=== PATIENT | male | born 1960 | race Caucasian/White ===

== ENCOUNTER 2024-08-30 09:22 | Outpatient (AMB) | payer OTHER, SELFPAY ==
--- OUTSIDE RECORDS SUMMARY | 2024-08-30 09:25 | XMS_ITS | Continuity of Care Document ---
Author Organization [facility] Address [address] [place] [address]- Care Team Providers Care Basket Patcher Name Role Phone Alirio MORENO, Day Rosa Primary Care Physici an Encounter [facility] Date(s): 07/17/24 - 08/16/24 [facility] [address] [place] [address]- Attending Physician: Admtr Ar8 Admitting Physician: Admtr, Ar8 Referring Physician: Admtr, Ar8 Encounter Type: Triage Allergies, Adverse Reactions, Alerts No Known Allergies Immunizations Given and Recorded Vaccine Date Status Refusal Reason pneumococcal 20-valent conjugate vaccine 05/18/24 Recorded SARS-CoV-2(COVID-19)mRNA-LNP vac([id number]) 06/16/23 Recorded influenza virus vaccine, inactivated 06/10/23 Baldo rded influenza virus vaccine, inactivated 06/04/22 Baldo rded influenza virus vaccine, inactivated 06/11/21 Baldo rded influenza virus vaccine, inactivated 05/29/20 Baldo rded influenza virus vaccine, inactivated 06/15/19 Baldo rded influenza virus vaccine, inactivated 1 06/14/18 Re corded influenza virus vaccine, inactivated 06/14/17 Baldo rded influenza virus vaccine, inactivated 2 06/13/16 Re corded influenza virus vaccine, inactivated 07/11/11 Give n [id number] bivalent booster vax 06/04/22 Recorded SARS-CoV-2 (COVID-19) mRNA-1273 vaccine 09/12/21 R ecorded SARS-CoV-2 (COVID-19) mRNA-1273 vaccine 01/14/21 R ecorded SARS-CoV-2 (COVID-19) mRNA-1273 vaccine 12/17/20 R ecorded tetanus/diphtheria/pertussis, acel(Tdap) 3 05/19/20 Given tetanus-diphtheria toxoids (Td) 10/22/09 Given tetanus-diphtheria toxoids (Td) 4 09/18/99 Given 1Result Comment: [06/18/2018] [facility] 2Result Comment: [06/15/2016] [facility] 3Result Comment: [facility] [id number] 4Admin Note: EXACT DATE UNKNOWN Medications atenolol 100 mg oral tablet 1 tablet, By Mouth, Daily, # 90 tablet, 1 Refills, Maintenance, 02/13/24 10:23:00 AM EDT, [facility]/pharmacy #1230, 160, cm, 02/13/24 9:12:00 EDT, Height Start Date: 02/13/24 Status: Ordered Quantity: 90.0 Unit: tablet Repeat number: 2 Indication: Essential (primary) hypertension Azithromycin 5 Day Dose Pack 250 mg oral tablet 1 pack/packet, By Mouth, Once, # 6 tablet, 0 Refills, Soft Stop, 07/25/24 6:41:00 PM EST, Tablet, [facility]/pharmacy #1230, Partial fill upon patient request if the prescription is for a schedule II opioid drug., 160, cm, 07/17/24 15:17:00 EDT, Height, 113.9, kg, 05/03/24 8:02:00 EDT, Dry Weight Start Date: 07/25/24 Status: Ordered Quantity: 6.0 Unit: tablet Repeat number: 1 Indication: Chronic obstructive pulmonary disease with (acute) exacerbation Caltrate 600 Plus 0 Refills, Maintenance, 03/11/14 3:39:12 PM EDT Start Date: 03/11/14 Status: Ordered Repeat number: 1 Claritin 10 mg oral tablet 1 tablet = 10 mg, By Mouth, Daily, 0 Refills, Maintenance, 04/05/12 4:27:24 PM EDT Start Date: 04/05/12 Status: Ordered Repeat number: 1 Flonase = 50 mcg, Daily, 0 Refills, Maintenance, 02/13/24 8:10:00 AM EDT, Partial fill upon patient request if the prescription is for a schedule II opioid drug. Start Date: 02/13/24 Status: Ordered Repeat number: 1 hydrochlorothiazide-losartan 12.5 mg-100 mg oral tablet 1 tablet, By Mouth, Daily, # 90 tablet, 1 Refills, Maintenance, 05/30/24 2:52:00 PM EDT, Tablet, [facility]/pharmacy #1230, Partial fill upon patient request if the prescription is for a schedule II opioid drug., 1 tablet By Mouth Daily,x90 days, 160, cm, 05/03/24 8:19:00 EDT, Height, 113.9, kg, 05/03/24 8:02:00 EDT, Dry Weight Start Date: 05/30/24 Stop Date: 11/26/24 Status: Ordered Quantity: 90.0 Unit: tablet Repeat number: 2 Indication: Essential (primary) hypertension Natural Fiber Therapy See Instructions, 0 Refills, Maintenance, 01/16/15 2:48:40 PM EDT Start Date: 01/16/15 Status: Ordered Repeat number: 1 nystatin topical 630050 u/gm cream 1 application, Topically, 2 times a day, Apply to affected area., # 30 Gm, 1 Refills, Maintenance, 05/19/20 8:25:00 AM EDT, Cream, [id number], 1 application Topically 2 times a day,a45kgkg,Instr:Apply to affected area., 160, cm, 05/19/20 8:08:00 EDT, Height Start Date: 05/19/20 Stop Date: 06/16/20 Status: Ordered Quantity: 30.0 Unit: g Repeat number: 2 Ventolin HFA 108 mcg/inh inhalation aerosol with adapter 2 puffs, Inhalation, 4 times a day, PRN Wheezing/Shortness of Breath, # 1 each, 1 Refills, Maintenance, 07/22/22 8:01:00 PM EDT, Aerosol, [facility]/pharmacy #1230, Partial fill upon patient request if the prescription is for a schedule II opioid drug., 160, cm, 12/24/21 12:48:00 EDT, Height Start Date: 07/22/22 Status: Ordered Quantity: 1.0 Unit: each Repeat number: 2 vit d vit d, Refills 0, Maintenance, 04/05/12 4:27:28 PM EDT Start Date: 04/05/12 Status: Ordered Repeat number: 1 Vitamin C By Mouth, Daily, 0 Refills, Maintenance, 11/13/19 8:38:00 AM EST Start Date: 11/13/19 Status: Ordered Repeat number: 1 Problem List Condition Confirmation Course Effective Dates Status Health St [facility] Informant ALLERGIC RHINITIS Confirmed Active Avulsion of finger Confirmed 12/14/12 Active Obesity (BMI 30-39.9) Confirmed Active Candidal skin infection Confirmed Active COPD, Gold cat. 1 Confirmed Active Exertional shortness of breath Confirmed Active Eczema Confirmed Active GERD (MILD) Confirmed Active Hypertension Confirmed Active Irritable bowel syndrome Confirmed Active Hernia, inguinal, left Confirmed Active Elevated LFTs Confirmed Active Obesity Confirmed Active Severe obesity Confirmed Active Weight gain Confirmed Active Social History Social History Type Response Smoking Status Current some day smo ker; Type: Cigars entered on: 06/13/16 Sex Sex Representation Male (finding) Laboratory * Event Display: Laboratory Result Scanned Authored Date: * Event Display: Non BH Lab Results Authored Date: Patient Care team information Care Team Personnel Name: Alirio MORENO, Day Rosa Position: [facility] PCO Associate Professional Member Role: PCP Address: [address] [place] [address] Practice [facility] [place] [address]- Telecom: Care Team Related Persons Name: ETHAN PECK Insurance Providers Guarantor name: JYOTI [facility] Information #: 1 Payer: [facility] Member Number: NA Policy Number: NA Group Number: NA
--- OUTSIDE RECORDS SUMMARY | 2024-08-30 09:25 | XMS_ITS | Continuity of Care Document ---
Author Organization [facility] Address [address] [place] [address]- Care Team Providers Care Pot Fluxer Name Role Phone Alirio MORENO, Day Rosa Primary Care Physici an Encounter [facility] Date(s): 07/16/24 - 08/15/24 [facility] [address] [place] [address]- Encounter Type: Triage Allergies, Adverse Reactions, Alerts No Known Allergies Immunizations Given and Recorded Vaccine Date Status Refusal Reason pneumococcal 20-valent conjugate vaccine 05/18/24 Recorded SARS-CoV-2(COVID-19)mRNA-LNP vac([id number]) 06/16/23 Recorded influenza virus vaccine, inactivated 06/10/23 [...] influenza virus vaccine, inactivated 07/11/11 Give n [id number] bivalent booster vax 06/04/22 Recorded SARS-CoV-2 (COVID-19) mRNA-1273 vaccine 09/12/21 R ecorded SARS-CoV-2 (COVID-19) mRNA-1273 vaccine 01/14/21 R ecorded SARS-CoV-2 (COVID-19 mRNA-2257 vaccine 12/17/20 R ecorded tetanus/diphtheria/pertussis, acel(Tdap) 3 05/19/20 Given tetanus-diphtheria toxoids (Td) 10/22/09 Given tetanus-diphtheria toxoids (Td) 4 09/18/99 Given 1Result Comment: [06/18/2018] [facility] 2Result Comment: [06/15/2016] [facility] 3Result Comment: [facility] [id number] 4Admin Note: EXACT DATE UNKNOWN Medications atenolol 100 mg oral tablet 1 tablet, By Mouth, Daily, # 90 tablet, 1 Refills, Maintenance, 02/13/24 10:23:00 AM EDT, [facility], 160, cm, 02/13/24 9:12:00 EDT, Height Start Date: 02/13/24 Status: Ordered Quantity: 90.0 Unit: tablet Repeat number: 2 Indication: Essential (primary) hypertension Azithromycin 5 Day Dose Pack 250 mg oral tablet 1 pack/packet, By Mouth, Once, # 6 tablet, 0 Refills, Soft Stop, 07/25/24 6:41:00 PM EST, Tablet, [facility], Partial fill upon patient request if [...] Refills, Maintenance, 05/30/24 2:52:00 PM EDT, Tablet, [facility]/pharmacy #1230, Partial fill upon patient request if [...] Status: Ordered Repeat number: 1 nystatin topical 725015 u/gm cream 1 application, Topically, 2 times a day, Apply to affected area., # 30 Gm, 1 Refills, Maintenance, 05/19/20 8:25:00 AM EDT, Cream, [facility] #[id number], 1 application Topically 2 times a day,c20znut,Instr:Apply to affected area., 160, cm, 05/19/20 8:08:00 EDT, Height Start Date: 05/19/20 Stop Date: 06/16/20 Status: Ordered Quantity: 30.0 Unit: g Repeat number: 2 Ventolin HFA 108 mcg/inh inhalation aerosol with adapter 2 puffs, Inhalation, 4 times a day, PRN Wheezing/Shortness of Breath, # 1 each, 1 Refills, Maintenance, 07/22/22 8:01:00 PM EDT, Aerosol, [facility], Partial fill upon patient request if [...] on: 06/13/16 Sex Sex Representation Male (finding) Patient Care team information Care Team Personnel Name: Alirio MORENO, Day Rosa Position: S PCO Associate Professional Member Role: PCP Address: [address] [place] [address] [place] [address]- Telecom: Care Team Related Persons Name: ETHAN PECK Insurance Providers Guarantor name: JYOTI [employer] Health Plan Information #: 1 Payer: [facility] Member Number: NA Policy Number: NA Group Number: NA
--- OUTSIDE RECORDS SUMMARY | 2024-08-30 09:25 | XMS_ITS | Continuity of Care Document ---
Author Organization [facility] Address [address] [place] [address]- Care Team Providers Care Furnace Installer Name Role Phone Alirio MORENO, Day Rosa Primary Care Physici an Encounter [facility] Date(s): 07/16/24 - 08/15/24 [facility] [address] [place] [address]- Encounter Type: Triage Allergies, Adverse Reactions, Alerts No Known Allergies Immunizations Given and Recorded Vaccine Date Status Refusal Reason pneumococcal 20-valent conjugate vaccine 05/18/24 Recorded SARS-CoV-2(COVID-19)mRNA-LNP vac([id number]) 06/16/23 Recorded influenza virus vaccine, inactivated 06/10/23 [...] influenza virus vaccine, inactivated 07/11/11 Give n [id number] bivalent booster vax 06/04/22 Recorded SARS-CoV-2 (COVID-19) mRNA-1273 vaccine 09/12/21 R ecorded SARS-CoV-2 (COVID-19) mRNA-1273 vaccine 01/14/21 R ecorded SARS-CoV-2 (COVID-19 mRNA-0023 vaccine 12/17/20 R ecorded tetanus/diphtheria/pertussis, acel(Tdap) 3 05/19/20 Given tetanus-diphtheria toxoids (Td) 10/22/09 Given tetanus-diphtheria toxoids (Td) 4 09/18/99 Given 1Result Comment: [06/18/2018] [facility] 2Result Comment: [06/15/2016] [facility] 3Result Comment: [facility] [id number] 4Admin Note: EXACT DATE UNKNOWN Medications atenolol [...] Refills, Maintenance, 05/30/24 2:52:00 PM EDT, Tablet, [facility]/pharmacy #1230, Partial fill upon patient request [...] Status: Ordered Repeat number: 1 nystatin topical 966473 u/gm cream 1 application, Topically, 2 times a day, Apply to affected area., # 30 Gm, 1 Refills, Maintenance, 05/19/20 8:25:00 AM EDT, Cream, [facility] #[id number], 1 application Topically 2 times a day,[id number],Instr:Apply to affected area., 160, cm, 05/19/20 8:08:00 [...] PCO Associate Professional Member Role: PCP Address: [address] [place] [address] [place] [address]- Telecom: Care Team Related Persons Name: ETHAN PECK Insurance Providers Guarantor name: JYOTI CISCO Health Plan Information #: 1 Payer: [facility] Member Number: NA Policy Number: NA Group Number: NA
--- OUTSIDE RECORDS SUMMARY | 2024-08-30 09:25 | XMS_ITS | Continuity of Care Document ---
[facility] Address [address] [place] [address]- Care Team Providers Care Scow Hand Name Role Phone Alirio MORENO, Day Rosa Primary Care Physici an Encounter [facility] Date(s): 07/25/24 - 08/24/24 [facility] [address] [place] [address]- Encounter Type: Triage Allergies, Adverse Reactions, Alerts No Known Allergies Immunizations Given and Recorded Vaccine Date Status Refusal Reason influenza virus vaccine, inactivated 06/01/24 Baldo rded influenza virus vaccine, inactivated 06/10/23 Baldo rded [...] influenza virus vaccine, inactivated 07/11/11 Give n SARS-CoV-2(COVID-19)mRNA-LNP vac([id number]) 06/01/24 Recorded SARS-CoV-2(COVID-19)mRNA-LNP vac(jac930) 06/16/23 Recorded pneumococcal 20-valent conjugate vaccine 05/18/24 Recorded [id number] bivalent booster vax 06/04/22 Recorded SARS-CoV-2 (COVID-19) mRNA-1273 vaccine 09/12/21 R ecorded SARS-CoV-2 (COVID-19) mRNA-1273 vaccine 01/14/21 R ecorded SARS-CoV-2 (COVID-19) mRNA-1273 vaccine 12/17/20 R ecorded tetanus/diphtheria/pertussis, acel(Tdap) 3 05/19/20 Given tetanus-diphtheria toxoids (Td) 10/22/09 Given tetanus-diphtheria toxoids (Td) 4 09/18/99 Given 1Result Comment: [06/18/2018] [facility] 2Result Comment: [06/15/2016] [facility] 3Result Comment: [facility] [id number] 4Admin Note: EXACT DATE UNKNOWN Medications atenolol 100 mg oral tablet 1 tablet, By Mouth, Daily, # 90 tablet, 1 Refills, Maintenance, 02/13/24 10:23:00 AM EDT, [facility], 160, cm, 02/13/24 9:12:00 EDT, Height Start Date: 02/13/24 Status: Ordered Quantity: 90.0 Unit: tablet Repeat number: 2 Indication: Essential (primary) hypertension Caltrate 600 Plus 0 Refills, Maintenance, 03/11/14 3:39:12 PM EDT Start Date: 03/11/14 Status: Ordered Repeat number: 1 Claritin 10 mg oral tablet 1 tablet = 10 mg, By Mouth, Daily, 0 Refills, Maintenance, 04/05/12 4:27:24 PM EDT Start Date: 04/05/12 Status: Ordered Repeat number: 1 Flonase Allergy Relief 50 mcg/inh nasal spray 1 sprays = 50 mcg, Nares, Both, Daily, shake well before using, # 9.9 mL, 0 Refills, Maintenance, 08/23/24 9:16:00 AM EST, [place], Partial fill upon patient request if the prescription is for a schedule II opioid drug. Start Date: 08/23/24 Status: Ordered Quantity: 9.9 Unit: mL Repeat number: 1 hydrochlorothiazide-losartan 12.5 mg-100 mg oral tablet 1 tablet, By Mouth, Daily, # 90 tablet, 1 Refills, Maintenance, 05/30/24 2:52:00 PM EDT, Tablet, [facility], Partial fill upon patient request if the prescription is for a schedule II opioid drug., 1 tablet By Mouth Daily,x90 days, 160, cm, 05/03/24 8:19:00 EDT, Height, 113.9, kg, 05/03/24 8:02:00 EDT, Dry Weight Start Date: 05/30/24 Stop Date: 11/26/24 Status: Ordered Quantity: 90.0 Unit: tablet Repeat number: 2 Indication: Essential (primary) hypertension magnesium gluconate 250 mg oral tablet 1 tablet = 250 mg, By Mouth, Daily, 0 Refills, Maintenance, 08/23/24 9:16:00 AM EST, Partial fill upon patient request if the prescription is for a schedule II opioid drug. Start Date: 08/23/24 Status: Ordered Repeat number: 1 Natural Fiber Therapy See Instructions, 0 Refills, Maintenance, 01/16/15 2:48:40 PM EDT Start Date: 01/16/15 Status: Ordered Repeat number: 1 Ventolin HFA 108 mcg/inh inhalation aerosol with adapter 2 puffs, Inhalation, 4 times a day, PRN Wheezing/Shortness of Breath, # 1 each, 1 Refills, Maintenance, 07/22/22 8:01:00 PM EDT, Aerosol, [facility]/pharmacy #1230, Partial fill upon patient request [...] PCO Associate Professional Member Role: PCP Address: [address] [place] [address] [place] [address]- Telecom: Care Team Related Persons Name: ETHAN PECK Insurance Providers Guarantor name: JYOTI [facility] Information #: 1 Payer: [facility] Member Number: NA Policy Number: NA Group Number: NA
--- OUTSIDE RECORDS SUMMARY | 2024-08-30 09:26 | XMS_ITS | Continuity of Care Document ---
Author Organization [facility] Address [address] [place] [address]- Care Team Providers Care Emergency Medical Technician Basic Name Role Phone Alirio MORENO, Day Rosa Primary Care Physici Encounter [facility] Date(s): 07/29/24 - 08/28/[facility] [address] [place] [address]- Encounter Type: Triage Allergies, Adverse Reactions, Alerts [...] virus vaccine, inactivated 07/11/11 Give n SARS-CoV-2(COVID-19)mRNA-LNP vac([id number]) 06/01/24 Recorded SARS-CoV-2(COVID-19)mRNA-LNP vac(jym260) 06/16/23 Recorded pneumococcal 20-valent conjugate vaccine 05/18/24 Recorded [id number] bivalent booster vax 06/04/22 Recorded SARS-CoV-2 (COVID-19) mRNA-1273 vaccine 09/12/21 R ecorded SARS-CoV-2 (COVID-19) mRNA-1273 vaccine 01/14/21 R ecorded SARS-CoV-2 (COVID-19) mRNA-1273 vaccine 12/17/20 R ecorded tetanus/diphtheria/pertussis, acel(Tdap) 3 05/19/20 Given tetanus-diphtheria toxoids (Td) 10/22/09 Given tetanus-diphtheria toxoids (Td) 4 09/18/99 Given 1Result Comment: [06/18/2018] [facility] 2Result Comment: [06/15/2016] [facility] 3Result Comment: [facility] [id number] 4Admin Note: EXACT DATE UNKNOWN Medications atenolol [...] 0 Refills, Maintenance, 08/23/24 9:16:00 AM EST, [place], Partial fill upon patient request if the [...] PCO Associate Professional Member Role: PCP Address: [address] [place] [address] [place] [address]- Telecom: Care Team Related Persons Name: ETHAN PECK Insurance Providers Guarantor name: JYOTI [facility] Information #: 1 Payer: [facility] Member Number: NA Policy Number: NA Group Number: NA
--- OUTSIDE RECORDS SUMMARY | 2024-08-30 09:26 | XMS_ITS | Patient Health Record ---
Author Organization [facility] Address [address] [facility] [place] [address] Care Team Providers Care Engineering Technical Writer Name Role Phone Luci Stafford Primary Care Provider Unavail able Dano Dai Unavailable [phone] Allergies No Known Allergies Reason For Referral No Information Medications Medication SIG (Take, Route, Fr equency, Duration) Notes Start Date End Date Status Calcium Active Claritin Active Fiber Active Magnesium 250 MG 1 tablet with a meal Orally Once a day for 30 day(s) Active Aleve Active Apple Cider Vinegar Active Atenolol 100 MG 1 tablet Orally Once a day for 30 day(s) Active Social History Tobacco Use: Social History Observation Description Date Details (start date - stop date) Current Smoker NA - NA Tobacco Use/Smoking Question Answer Notes Are you a: current smoker How often do you smoke cigarettes? every day Alcohol Screen Question Answer Notes Did you have a drink contain ing alcohol in the past year? Yes How often did you have a dri nk containing alcohol in the past year? 2 to 4 times a month (2 points) Points 2 Interpretation Negative Problems Problem Type SNOMED Code ICD Code Onset Dates Problem Status W/U Status Risk Notes Problem Achilles bursitis (360059325) Achilles tendinitis, right leg (M76.61) Active confirmed Plan Of Treatment No Information Insurance Providers Payer Name Payer Address Payer Phone Subscriber Number Group Number Insured Name Patient Relationship to Insured Coverage Start Date Coverage End Date [employer] [address] ESTELITA Vanegas [phone] [id number] Berlin Mckeon Self - patient is the insured Medical (General) History Medical History History ICD Code Back,Hip,and Knee pain Gall bladder problems Glaucoma High blood pressure Chicken pox IBS-D Surgical History Surgery Date(Month/Year) gall bladder-removal 05/2013
[2024-08-30 09:28] VITALS: BP 178/102; PULSE 77; O2SAT 98; BMI 41.6
--- NOTE | 2024-08-30 09:28 | MHC.OFFVIS ---
Vital Signs 08/30/24 09:28 Height 5 ft 3 in Weight 234 lb 12.677 oz BMI 41.6 BP 178/102 H Blood Pressure Location Rt brachial Position Sitting Pulse 77 Pulse Source Doppler Pulse Oximetry (%) 98 Oxygen Delivery Method Room Air Intake Visit Reasons: copd Allergies No Known Allergies Allergy (Verified 08/30/24 09:32) HPI HPI copd: Details: 64-year-old gentleman, who occasionally smokes cigars during summertime, but otherwise no tobacco products referred for evaluation of mild COPD noted on pulmonary function testing. Patient denies any clinical COPD symptoms. He denies family or personal history of lung disease. He has been employed without exposure to industrial dusts. Patient has been using albuterol MDI prescribed by his primary once every few months. He does have underlying environmental allergies for which he uses Flonase or Claritin with reasonable control of his symptoms. [facility] Social History (Updated 08/30/24 @ 09:33 by Randee Jaquez Matt) Patient Tobacco Use Status: Current someday Tobacco user Tobacco use type: Cigar Review of Systems Const Denies daytime sleepiness, Denies excessive sweating, Denies fatigue, Denies fever(s), Denies lethargy, Denies malaise, Denies night sweats, Denies snoring and Denies weight loss Eyes Denies blurry vision and Denies itchy eyes ENT Denies nasal congestion, Denies post nasal drip, Denies sinus pain, Denies sinus pressure and Denies other ( Thrush) Card Denies chest pain, Denies pedal edema, Denies dyspnea, Denies orthopnea and Denies paroxysmal nocturnal dyspnea Resp Denies cough, Denies hemoptysis, Denies excessive phlegm production, Denies dyspnea, Denies snoring and Denies wheezing GI Denies abdominal pain and Denies heartburn Musc Denies myalgias, Denies arthralgias and Denies joint swelling Skin/Breast Denies rash Neuro Denies memory loss and Denies seizure-like activity Psych Denies abnormal sleep pattern, Denies anxiety and Denies memory loss Endo Denies excessive sweating, Denies fatigue and Denies heat intolerance Emre/Lymph Denies easy bruising Aller/Immun Denies itchy eyes, Denies seasonal rhinorrhea and Denies wheezing Physical Exam Vital Signs: Last Vital Signs Pulse 77 08/30/24 09:28 BP 178/102 H 1213/24 09:28 Pulse Ox 98 08/30/24 09:28 Oxygen Delivery Method Room Air 08/30/24 09:28 BMI result Body Mass Index 41.6 Const General: no acute distress and alert Nutritional Appearance: not obese Orientation/consciousness: Other orientation findings ( oriented) HEENT Head: Yes atraumatic Eyes General: appearance normal, both eyes and all related structures Sclerae: sclerae normal EOM: EOMs intact bilaterally Neck Neck: Yes supple Lymphatic: no lymphadenopathy noted Resp Effort & Inspection: normal respiratory effort and no use of accessory muscles Auscultation: clear to auscultation bilaterally Cardio Rate: regular rate Rhythm: regular rhythm Heart sounds: no gallops, no murmurs and no rubs Skin General skin exam: other ( warm) Extrem General: No clubbing, No cyanosis and No edema Assessment & Plan Assessment & Plan (1) COPD, mild: Code(s): J44.9 - Chronic obstructive pulmonary disease, unspecified Category: Medical Plan: Results of pulmonary function test reviewed, underlying mild COPD clinically asymptomatic. Continue to monitor clinically. Continue as needed albuterol MDI. (2) Environmental allergies: Code(s): Z91.09 - Other allergy status, other than to drugs and biological substances Category: Medical Plan: Now reasonably well controlled on current regimen of Flonase and as needed Claritin. Continue current regimen. Coding Level of Care Code New Pt Level 4 (33798) Diagnoses COPD, mild J44.9 Environmental allergies Z91.09
== END 2024-08-30 09:53 | disposition home or self-care (01) ==
PROVIDERS: PCP Nurse Practitioner Family; Visit Provider Internal Medicine Pulmonary Disease
DX: J44.9 Chronic obstructive pulmonary disease, unspecified (principal); Z91.09 Other allergy status, other than to drugs and biological substances
CPT/HCPCS: 99204

== ENCOUNTER → 2024-08-30 09:22 | Outpatient (BNVA) | payer OTHER, SELFPAY | PROVIDERS: Visit Provider Internal Medicine Pulmonary Disease ==